=== PATIENT | male | born 1985 | race Caucasian/White ===

== ENCOUNTER 2017-08-21 14:19 | Emergency (ER) | payer BC, OTHER ==
--- NOTE | 2017-08-21 14:38 | EDM.PDOC ---
ED HPI GENERAL MEDICAL PROBLEM - General Chief Complaint: General Stated Complaint: NECK HURT AND NUMBNESS Time Seen by Provider: 08/21/17 14:30 - History of Present Illness INITIAL COMMENTS - FREE TEXT/NARRATIVE: HISTORY AND PHYSICAL: History of present illness: Patient is a 32-year-old white male who presents with a concern of intermittent right neck pain he states at times he'll have some paresthesia in his right hand he does not have this on arrival here he states he has limited range of motion at times with this pain is in a chronic intermittent problem. He denies any direct trauma denies any other neurological signs or symptoms or other concern. Review of systems: As per history of present illness and below otherwise all systems reviewed and negative. Past medical history: As per history of present illness and as reviewed below otherwise noncontributory. Surgical history: As per history of present illness and as reviewed below otherwise noncontributory. Social history: No reported history of drug or alcohol abuse. Family history: As per history of present illness and as reviewed below otherwise noncontributory. Physical exam: HEENT: Atraumatic, normocephalic, pupils reactive, negative for conjunctival pallor or scleral icterus, mucous membranes moist, throat clear, neck supple, mild spasm in the right paravertebral region no vertebral body or point tenderness no cervical radicular findings trachea midline. Lungs: Clear to auscultation, breath sounds equal bilaterally, chest nontender. Heart: S1S2, regular, negative for clicks, rubs, or JVD. Abdomen: Soft, nondistended, nontender. Negative for masses or hepatosplenomegaly. Negative for costovertebral tenderness. Pelvis: Stable nontender. Genitourinary: Deferred. Rectal: Deferred. Extremities: Atraumatic, negative for cords or calf pain. Neurovascular unremarkable. Neuro: Awake, alert, oriented. Cranial nerves II through XII unremarkable. Cerebellum unremarkable. Motor and sensory unremarkable throughout. Exam nonfocal. Diagnostics: X-ray cervical spine Therapeutics: None Impression: #1 chronic intermittent neck pain with history of intermittent cervical radiculopathy Definitive disposition and diagnosis as appropriate pending reevaluation and review of above. - Related Data Allergies Allergy/AdvReac Type Severity Reaction Status Date / Time No Known Allergies Allergy Verified 08/28/14 19:32 Home Meds: Home Meds . [No Known Home Meds] 08/28/14 [History] Past Medical History - Past Surgical History Other Musculoskeletal Surgeries/Procedures:: right forearm surgery ED ROS GENERAL - Review of Systems Review Of Systems: ROS reveals no pertinent complaints other than HPI. ED EXAM, GENERAL - Physical Exam Exam: See Below (See dictation) Course - Vital Signs Text/Narrative:: I discussed with patient and significant other at length the need for further evaluation as outpatient and that imaging physical therapy and other diagnostic and therapeutic adjuncts may be indicated patient in significant other understand and agree - Orders/Labs/Meds Orders: Active Orders 24 hr Category Date Time Status Cervical Spine 2V or 3V [CR] Stat Exams 08/21/17 14:35 Ordered Departure - Departure Time of Disposition: 14:37 Disposition: Home, Self-Care 01 Condition: Good Clinical Impression: Neck pain - Discharge Information Referrals: PCP,None [Primary Care Provider] - Additional Instructions: The following information is given to patients seen in the emergency department who are being discharged to home. This information is to outline your options for follow-up care. We provide all patients seen in our emergency department with a follow-up referral. The need for follow-up, as well as the timing and circumstances, are variable depending upon the specifics of your emergency department visit. If you don't have a primary care physician on staff, we will provide you with a referral. We always advise you to contact your personal physician following an emergency department visit to inform them of the circumstance of the visit and for follow-up with them and/or the need for any referrals to a consulting specialist. The emergency department will also refer you to a specialist when appropriate. This referral assures that you have the opportunity for followup care with a specialist. All of these measure are taken in an effort to provide you with optimal care, which includes your followup. Under all circumstances we always encourage you to contact your private physician who remains a resource for coordinating your care. When calling for followup care, please make the office aware that this follow-up is from your recent emergency room visit. If for any reason you are refused follow-up, please contact the [facility] emergency department at and asked to speak to the emergency department charge nurse. [facility] [address] [place] [id number] Medrol Motrin as prescribed follow-up with clinic above call schedule routine appointment activity as tolerated as discussed no weight lifting as discussed - My Orders Last 24 Hours: My Active Orders 08/21/17 14:35 Cervical Spine 2V or 3V [CR] Stat - Assessment/Plan Last 24 Hours: My Active Orders 08/21/17 14:35 Cervical Spine 2V or 3V [CR] Stat
[2017-08-21 17:38] VITALS: BP 126/73
--- NOTE | 2017-08-23 19:14 | CR ---
EXAM DATE: 08/21/17 PATIENT'S AGE: 32 Patient: DOUG HEBERT Facility: [place], [place] Site . Site : 1985 Study: XRay Spine Cervical [id number]/7/2018 3:17:25 PM Ordering Physician: Marjorie Mejia Final Report: INDICATION: Neck pain for the last 3 weeks. COMPARISON: None . Technique: Three-view study cervical spine. FINDINGS: No evidence of fracture or dislocation. No bone or soft tissue abnormalities. C1 -C2 articulation is unremarkable. Intervertebral disc spaces are well preserved and fail to reveal any abnormalities. IMPRESSION: Negative radiographic examination of the cervical spine. Dictated by Mouna Weiss MD @ Aug 21 2017 3:18PM (Electronic Signature) Report Signed by Proxy. MARCELL
== END 2017-08-21 15:40 | disposition home or self-care (01) ==
LOC: MW.ED 14:19
DX: M54.2 Cervicalgia (principal); G89.29 Other chronic pain
CPT/HCPCS: 72040; 72040-26; 99283

== ENCOUNTER 2018-09-12 21:40 | Observation (INO) | payer BC, OTHER ==
[2018-09-12] MEDS ORDERED: Diphtheria,Pertussis(Acell),Tetanus Vaccine 0.5 ML Syringe IM ONE (21:42)
[2018-09-12] MEDS ORDERED: Ondansetron 4 MG/2 ML SDV IVPUSH ONE (21:42)
[2018-09-12] MEDS ORDERED: Morphine 2 MG/ML Syringe IVPUSH ONE (21:42)
[2018-09-12] MEDS ORDERED: Sodium Chloride 0.9% 2.5 ML Syringe FLUSH PRN (21:47)
[2018-09-12] MEDS ORDERED: Sodium Chloride 0.9% 10 ML Syringe FLUSH PRN (21:47)
[2018-09-12] MEDS ORDERED: Ketorolac 30 MG/ML SDV ONE (21:51)
[2018-09-12] MEDS ORDERED: Ketorolac 30 MG/ML SDV IVPUSH ONE (21:53)
[2018-09-12] MEDS ORDERED: Morphine 4 MG/ML Syringe IVPUSH ONE (22:01)
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
[2018-09-12] MEDS ORDERED: Sodium Chloride 0.9% 1,000 ML IV ONE (22:08)
[2018-09-12] MEDS ORDERED: Acetaminophen 325 MG Tab PO PRN (22:20)
[2018-09-12] MEDS ORDERED: Ondansetron 4 MG/2 ML SDV IVPUSH PRN (22:20)
[2018-09-12] MEDS ORDERED: Morphine 10 MG/ML Syringe IVPUSH PRN (22:20)
[2018-09-12] MEDS ORDERED: Ketorolac 15 MG/ML SDV IVPUSH PRN (22:21)
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
[2018-09-12 22:33] LABS: BLOOD UREA NITROGEN,BUN 20 mg/dL (7.0-18.0); CARBON DIOXIDE,CO2 19.7 mmol/L (21.0-32.0); CHLORIDE,CL 107 mmol/L (98-107); GLUCOSE RANDOM 99 mg/dL (74-106); POTASSIUM,K 3.7 mmol/L (3.5-5.1); SODIUM,NA 139 mmol/L (136-148)
[2018-09-12] MEDS: Lactated Ringers 1,000 ML IV SCH (23:10)
[2018-09-12] MEDS: Acetaminophen/HYDROcodone 325-5 MG Tab PO PRN (23:33)
[2018-09-13] MEDS: Acetaminophen/HYDROcodone 325-5 MG Tab PO PRN (05:45)
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
[2018-09-13] MEDS ORDERED: Cyclobenzaprine 10 MG Tab PO SCH (06:00)
[2018-09-13 07:48] VITALS: BP 122/74; PULSE 60
[2018-09-13] MEDS: Lactated Ringers 1,000 ML IV SCH (08:12)
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
== END 2018-09-13 09:26 | disposition home or self-care (01) ==
LOC: MW.ED 21:40 → UNDOADMOB 22:02 → MW.MS 22:02
PROVIDERS: ADMIT Surgery; ATTEND Surgery
DX: S20.212A Contusion of left front wall of thorax, initial encounter (principal); S30.811A Abrasion of abdominal wall, initial encounter; S80.211A Abrasion, right knee, initial encounter; M79.671 Pain in right foot; R06.02 Shortness of breath; V09.20XA Pedestrian injured in traffic accident involving unspecified motor vehicles, initial encounter
CPT/HCPCS: 36415; 71045; 71046; 72170; 73560; 80053; 81001; 84484; 85025; 85610; 90471; 90715; 93005; 96361; 96374; 96375; 99285; A9270; G0390; J1885; J2270; J2405; J7040; J7120; 96376; G0378

== ENCOUNTER 2020-09-06 13:19 | Emergency (ER) | payer OTHER ==
[2020-09-06] MEDS ORDERED: HYDROmorphone 1 MG/ML Syringe IVPUSH ONE ×2 (13:47→15:46)
[2020-09-06] MEDS ORDERED: Sodium Chloride 0.9% 1,000 ML IV ONE ×2 (13:47→15:39)
[2020-09-06] MEDS ORDERED: Ondansetron 4 MG/2 ML SDV IVPUSH ONE (13:47)
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
[2020-09-06 14:40] LABS: BLOOD UREA NITROGEN,BUN 23 mg/dL (7.0-18.0); CARBON DIOXIDE,CO2 28.1 mmol/L (21.0-32.0); CHLORIDE,CL 105 mmol/L (98-107); GLUCOSE RANDOM 116 mg/dL (74-106); POTASSIUM,K 4.1 mmol/L (3.5-5.1); SODIUM,NA 139 mmol/L (136-148)
[2020-09-06] MEDS ORDERED: Iopamidol 755 MG/ML 500 ML Multipack Bottle IVPUSH STA (14:52)
--- NOTE | 2020-09-06 16:26 | CT ---
INDICATION: Abdominal trauma TECHNIQUE: CT abdomen and pelvis acquired with IV contrast. 100 mL of Isovue 370 administered. COMPARISON: None available FINDINGS: Lower chest: Clear lung bases. Gynecomastia, left greater than right. Liver: Unremarkable. Spleen: Unremarkable. Pancreas: Unremarkable. Gallbladder and bile ducts: Unremarkable. Adrenal glands: Unremarkable. Kidneys: No hydronephrosis. A subcentimeter left renal upper pole low-density lesion, too small to characterize, which could represent a small angiomyolipoma. GI tract: Unremarkable. Appendix is normal. Vascular structures: A low-attenuation area adjacent to the left external iliac artery suggestive of regional blood products, without evidence of gross extravasation. Normal aortic caliber. Lymph nodes: Unremarkable. Miscellaneous: An 8.2 x 7.9 x 13.4 cm hematoma in the anterior pelvis, exerting mass effect on the bladder. Adjacent pelvic blood products extending along the inferior paracolic gutters to the lower abdomen. Small blood products and stranding adjacent to the psoas muscles which appear grossly symmetrical. Edema and/or blood products in the inferior presacral and perirectal spaces. Small ovoid high attenuation structures along the pelvic sidewalls which could be related to focally dilated blood vessels or sub centimeter lymph nodes. A focal pseudoaneurysm formation versus, somewhat less likely, focal extravasation in the anterior left pelvis on image 150, is not excluded. No free air. Prominence of the inferior aspect of the rectus abdominus muscles. Pelvic Organs: Apparent thickening of the anterior bladder wall, which could be partially related to pericystic blood products, however concerning for bladder wall injury. Prostatic enhancement, probably reactive. Bones: Unremarkable for age. IMPRESSION: An anterior pelvic hematoma measuring up to 13.4 cm craniocaudally. Adjacent pelvic and lower abdominal blood products. Apparent anterior bladder wall thickening could be partially related to pericystic blood products, however concerning for anterior bladder wall injury. A small ovoid high attenuation focus in the anterior left pelvis may be related to a vessel or a sub centimeter lymph nodes, however a small traumatic pseudoaneurysm, versus, somewhat less likely, a focus of extravasation, are not excluded. Asymmetrical gynecomastia, left greater than right. The findings were discussed with Dr. Arellano, by phone, on 09/06/2020 at 4:15 p.m. Please note that all CT scans at this facility use dose modulation, iterative reconstruction, and/or weight-based dosing when appropriate to reduce radiation dose to as low as reasonably achievable. Dictated by Fareed Valladares MD @ 09/06/2020 4:25:[address] Fareed Valladares @ Sep 06 2020 4:25PM
[2020-09-06 16:44] VITALS: PULSE 70
[2020-09-06 17:52] VITALS: BP 110/61
== END 2020-09-06 17:51 | disposition home or self-care (01) ==
LOC: MW.ED 13:19
DX: S30.0XXA Contusion of lower back and pelvis, initial encounter (principal); R10.84 Generalized abdominal pain; W20.8XXA Other cause of strike by thrown, projected or falling object, initial encounter; Y92.89 Other specified places as the place of occurrence of the external cause; Y99.0 Civilian activity done for income or pay
CPT/HCPCS: 36415; 74177; 80053; 81003; 82550; 83605; 85025; 96374; 96375; 96376; 99284; J1170; J2405; J7030; Q9967

== ENCOUNTER 2023-03-21 20:20 | Emergency (ER) | payer SELFPAY ==
[2023-03-21] MEDS: Ibuprofen 600 MG Tab PO ONE (22:51)
[2023-03-21] MEDS: Acetaminophen/HYDROcodone 325-5 MG Tab PO ONE (22:52)
[2023-03-21 23:07] VITALS: BP 116/81; PULSE 58
== END 2023-03-21 23:07 | disposition home or self-care (01) ==
LOC: MW.ED 20:20
DX: S92.411A Displaced fracture of proximal phalanx of right great toe, initial encounter for closed fracture (principal); Z79.899 Other long term (current) drug therapy; W22.8XXA Striking against or struck by other objects, initial encounter
CPT/HCPCS: 73630; 99283; A9270